=== PATIENT | male | born 1985 | race Caucasian/White ===

== ENCOUNTER 2025-02-14 13:10 | Outpatient (AMB) | payer MEDICARE, MEDICAID, SELFPAY ==
[2025-02-14 13:24] VITALS: BP 124/88; PULSE 78; RESP 18; TEMP 37.1; O2SAT 99; BMI 17.6
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
== END 2025-02-14 13:51 | disposition home or self-care (01) ==
LOC: HODSRG 13:10
PROVIDERS: PCP Physician Assistant; Referring Provider Physician Assistant; Supervising Provider Surgery; Visit Provider Surgery
DX: K50.10 Crohn's disease of large intestine without complications (principal); K64.3 Fourth degree hemorrhoids; Z85.038 Personal history of other malignant neoplasm of large intestine; J44.9 Chronic obstructive pulmonary disease, unspecified
CPT/HCPCS: 99203; G0463

== ENCOUNTER 2025-03-07 13:04 | Outpatient (AMB) | payer MEDICARE, MEDICAID, SELFPAY ==
[2025-03-07 13:10] VITALS: BP 116/73; PULSE 70; RESP 16; TEMP 36.9; O2SAT 98; BMI 18.6
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
== END 2025-03-07 13:39 | disposition home or self-care (01) ==
PROVIDERS: PCP Physician Assistant; Referring Provider Physician Assistant; Supervising Provider Surgery; Visit Provider Surgery
DX: Z01.818 Encounter for other preprocedural examination (principal); K64.3 Fourth degree hemorrhoids; K50.10 Crohn's disease of large intestine without complications; I10 Essential (primary) hypertension; J44.9 Chronic obstructive pulmonary disease, unspecified; Z85.038 Personal history of other malignant neoplasm of large intestine
CPT/HCPCS: 99213; G0463

== ENCOUNTER 2025-03-09 05:40 | Day surgery (SDC) | payer MEDICARE, MEDICAID, SELFPAY ==
[2025-03-07 11:57] VITALS: BMI 18.3
--- NOTE | 2025-03-07 12:25 | EKG_ITS ---
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
[2025-03-07 13:17] LABS: Basophils # (Auto) 0.0 Thou/mm3 (0.0-0.2); Basophils % (Auto) 0 % (0-2.5); Eosinophils # (Auto) 0.1 Thou/mm3 (0.0-0.5); Eosinophils % (Auto) 2 % (0-10); Hematocrit 40.1 % (41.0-53.0); Hemoglobin 12.8 g/dL (13.5-16.0); Immature Granulocytes Auto 0.03 Thou/mm3 (0.00-0.00); Lymphocytes # (Auto) 1.7 Thou/mm3 (1.0-4.8); Lymphocytes % (Auto) 24 % (10-50); Mean Corpuscular HGB Conc 31.9 g/dl (31.0-37.0); Mean Corpuscular Hemoglobin 28.6 pg (25.0-35.0); Mean Corpuscular Volume 90 fL (80-100); Monocytes # (Auto) 0.4 Thou/mm3 (0.0-0.8); Monocytes % (Auto) 6 % (0-12); Neutrophils # (Auto) 4.8 Thou/mm3 (1.8-7.7); Neutrophils % (Auto) 68 % (37-80); Nucleated Red Blood Cell # 0.00 Thou/mm3 (0.00-0.00); Nucleated Red Blood Cell % 0 /100 WBC (0); Platelet Count 232 Thou/mm3 (140-440); RDW Standard Deviation 45.5 fL (35.1-43.9); Red Blood Count 4.47 Miln/mm3 (4.50-5.90); White Blood Count 7.0 Thou/mm3 (3.8-10.6)
[2025-03-07 13:27] LABS: INR 1.0 (0.9-1.3); Partial Thromboplastin Time 25.9 Seconds (22.0-36.0); Prothrombin Time 10.5 Seconds (9.0-12.2)
[2025-03-07 13:31] LABS: Alanine Aminotransferase 20 U/L (10-49); Albumin, Serum 4.4 gm/dL (3.5-5.0); Albumin/Globulin Ratio 2.1 (1.2-2.2); Alkaline Phosphatase 81 U/L (46-116); Anion Gap 7 (7-16); Aspartate Amino Transferase 21 U/L (0-34); BUN/Creatinine Ratio 13 Ratio (12-20); Bilirubin,Total 0.2 mg/dL (0.3-1.2); Blood Urea Nitrogen 9 mg/dL (9-23); Calcium 9.6 mg/dL (8.3-10.6); Calcium (Corrected) 9.6 mg/dL (8.5-10.1); Carbon Dioxide 29.9 mMol/L (20.0-31.0); Chloride 105 mMol/L (98-107); Creatinine (Component) 0.7 mg/dL (0.6-1.3); Estimated Creatinine Clearance 96.3 mL/min (>60); Globulin 2.1 gm/dL (2.3-3.5); Glucose 99 mg/dL (74-106); Osmolality,Calculated 281 (275-295); Potassium 4.2 mMol/L (3.4-5.1); Sodium 142 mMol/L (136-145); Total Protein 6.5 gm/dL (5.7-8.2); eGFR > 60 See Note
[2025-03-09] VITALS (15 sets, daily range): BP systolic 107–141; BP diastolic 52–89; PULSE 56–76; RESP 12–20; TEMP 36.2–36.8; O2SAT 98–100; BMI 18.1
[2025-03-09] MEDS: RINGERS LACTATED 1000 ML 1,000 ML 20 ML IV (06:54)
--- NOTE | 2025-03-09 07:15 | CHAP ---
Visited briefly with patient and gave encouragement and prayer.
--- NOTE | 2025-03-09 09:00 | SUR.PHASEI ---
0900: Pt. arrived with oral airway in place, vitals stable, breathing unlabored, no signs of distress, dressing to rectum has scant amount of blood, report recieved from MD Moore and Alex CARDOSO.
--- NOTE | 2025-03-09 09:05 | ESOP_ITS ---
Date of Procedure 03/09/25 Pre Op Diagnosis Symptomatic hemorrhoids Post Op Diagnosis Same Procedure Attempted colonoscopy, excisional hemorrhoidectomy Findings Colonoscopy aborted due to solid stool in rectum, inflamed and friable hemorrhoids Procedure Description After discussion of risks and benefits, patient was brought to the operating room, SCDs were placed and general anesthesia was induced. He first underwent attempted colonoscopy which will be dictated separately but it was ultimately aborted due to solid stool in the rectum. After colonoscopy patient was transferred to the OR table in lithotomy position with proper padding. He was prepped and draped in the usual sterile fashion. A Zimmerman retractor was placed into the anal canal and the most prominent hemorrhoids were noted at the right anterior and left lateral positions. The right anterior hemorrhoid was first addressed with a 2-0 Vicryl suture at the apex. The hemorrhoid itself was clamped with a hemostat and the anoderm was incised with a #15 blade. The anal sphincter muscles were dissected away from the hemorrhoidal tissue using hemostat and the hemorrhoidal tissue was excised using hand-held harmonic scalpel. The specimen was sent off. For hemostasis the anal mucosa was reapproximated with the previously placed 2-0 Vicryl suture in a running and l ocking fashion. Attention was then turned to the left lateral hemorrhoid which was excised in the same fashion. This resulting defect was bit larger and so it was impossible to fully reapproximate the anal mucosa. Hemostasis of both defects was achieved with electrocautery, direct pressure for 15 minutes and was then reinforced with Surgicel. Left and right pudendal nerve blocks were performed as well as a local block for total of 30 cc of half percent Marcaine. Patient was returned to supine position and extubated without complication. He was brought to PACU in stable condition Pathology / specimen Other (Right anterior, left lateral hemorrhoids) Estimated Blood Loss 50 Surgeon Klaudia Whitehead MD Surgical Staff Operation Date: 03/09/25 07:30 Case Staff Anesthesiologist: Ramakrishna Moore
--- NOTE | 2025-03-09 09:13 | PD.SURDS ---
Planned Discharge Date 03/09/25 DS: Providers Provider Primary care physician: Erica Lucio PA-C Attending Provider on Admission: Klaudia Whitehead MD Attending Provider on DC: Klaudia Whitehead MD Discharging Provider: Klaudia Whitehead MD Diagnosis Discharge Diagnosis (1) Hemorrhoids with prolapsed tissue that cannot be manually replaced: Status: Acute Problem List Completed Was Problem List Reviewed/Reconciled?: Yes Hospital Course Brief History: Colonoscopy was aborted due to solid stool, will repeat in the next few months after healing from hemorrhoidectomy Exam Vital Signs Temp Pulse Resp BP Pulse Ox 98.2 F 61 16 113/65 99 03/09/25 06:39 03/09/25 06:39 03/09/25 06:39 03/09/25 06:39 03/09/25 06:39 Discharge Plan Plan Patient Disposition: HOME (Self Care) Prescriptions/Referrals Prescriptions/Med Rec: New ibuprofen 600 mg tablet 600 mg PO Q6H PRN (Reason: pain, moderate) Qty: 30 0RF Rx Instructions: Take 1 tablet as needed every 6 hours for moderate pain No Action peg 3350-electrolytes [Golytely] 236-22.74-6.74 -5.86 gram recon soln 240 ml PO Q10M Qty: 4000 0RF Rx Instructions: until fecal effluent is clear lisinopril 10 mg tablet 10 mg PO DAILY Patient Comments: TAKE 1 TABLET BY MOUTH DAILY phenytoin sodium extended 100 mg capsule 100 mg PO BID Patient Comments: TAKE 1 CAPSULE BY MOUTH EVERY 12 HOURS levetiracetam [Keppra] 750 mg tablet 750 mg PO BID Humira(CF) Pen 80 mg/0.8 mL pen injector kit 40 mg SUBCUT Q14D diazepam 5 mg tablet 5 mg PO BID Patient Comments: TAKE 1 TABLET BY MOUTH TWICE DAILY morphine 30 mg tablet 30 mg PO TID albuterol sulfate 90 mcg/actuation HFA aerosol inhaler 1 inh INHALATION Q4H PRN (Reason: shortness of breath or wheezing) Patient Comments: INHALE 1 PUFF BY MOUTH EVERY 4 HOURS NEEDED oxycodone 20 mg tablet 20 mg PO Q8H PRN (Reason: pain) Patient Comments: TAKE 1 TABLET BY MOUTH EVERY 8 HOURS NEEDED Referrals: Erica Lucio PA-C [Primary Care Provider] - Kwock,Klaudia, MD [Physician] - (You will receive a phone call to confirm a follow-up appointment with me in 6 weeks) Patient/Caregiver Discharge Instructions Other Discharge Activity Instructions:: You may resume sitz baths as needed for pain, bleeding and swelling starting tomorrow 03/10 If you develop worsening pain, difficulty urinating, fever, or bleeding that does not stop please seek care in ER There are stitches inside your anal canal which will dissolve over time. These will not need to be removed As best as possible please avoid constipation or diarrhea Education Materials: Anesthesia: General Anesthesia, Surgery Anesthesia After, Discharge Instructions for ..., Preventing Surgical Site Infections, Taking a Sitz Bath, ED Hemorrhoids, [facility] General SDC Instructions- Senegalese Print Language: Senegalese Stand Alone Forms: Jihan Award Info., Patient Portal Info Letter Discharge Order Discharge Orders: Discharge (Routine); Ordered 03/09/25 Ordered By: Klaudia Whitehead Results Results: Laboratory Laboratory results: results reviewed PROCEDURES: Procedure Date 03/09/25 Procedures Attempted colonoscopy, excisional hemorrhoidectomy
--- NOTE | 2025-03-09 09:25 | SUR.PHASEI ---
0915: About a minute after oral airway was removed, pt. started to shake uncontrollably, pt. then had a bowel movement and vomited while shaking. Pt. has history of seizures, pt. had what appeared to be a seizure. Pt. was turned to left side during seizure activity (prior to vomiting), pt. was suctioned and nasal canula applied for oxygenation instead of oxymask. During this time, vitals were unable to be obtained due to pt. shaking. Notified MD Whitehead and MD Moore, was advised to continue to monitor and make them aware if anything further concerning occurs. Seizure lasted approximately 2 minutes. Post seizure, pt. verbalized he is aware he had a seizure and that his last seizure was a few weeks ago. Pt. wakes to name then drifts back to sleep if not prompted with further instructions/questions.
[2025-03-09] MEDS: HYDROmorphone INJ 2 MG/ML VIAL 0.4 MG IVP ×5 (09:37→10:30)
[2025-03-09] MEDS: TAMSULOSIN HCL 0.4 MG CAPSULE PO (09:49)
[2025-03-09] MEDS: MORPHINE SULF INJ 10 MG/ML VIAL 3 MG IVP ×3 (10:40→12:39)
--- NOTE | 2025-03-09 12:06 | SUR.PHASEII ---
Received report on pt. s/p surgery from Yeimy CARDOSO. Pt. is resting, occasional grimaces, VSS. Pt. has high tolerance to pain medication d/t pt. taking high dose of morphine at home. Pt. was provided a multiple different pain relieving modalities with only brief moments of relief. Performed bladder scan per Dr. Whitehead d/t pt. unable to urinated and it is required per Dr. Whitehead before pt. is able to be discharged. Will report results of bladder scan to Dr. Whitehead.
--- NOTE | 2025-03-09 12:15 | SUR.PHASEII ---
Made Dr. Whitehead aware of bladder scan results of 79ml. Dr. Whitehead encouraged for pt. to intake more oral fluids to help with needing to urinate.
--- NOTE | 2025-03-09 12:40 | SUR.PHASEII ---
1240: Recieved report from Siomara CARDOSO, still waiting for pt. to urinate. Pt. AAOx4,vitals stable, breathing unlabored, dressing to rectum CDI.
--- NOTE | 2025-03-09 13:10 | SUR.PHASEII ---
1310: Pt. AAOx4, vitals stable, breathing unlabored, no complaint of pain or nausea, dressing to rectum has scant amount of blood, pt. tolerated sips of soda well, pt. able to void, gave discharge instructions to the pt. and his ride, both verbalized understanding and had no further questions. Pt. left with all personal belongings.
== END 2025-03-09 13:10 | disposition home or self-care (01) ==
PROVIDERS: Anesthesiology; PCP Physician Assistant; Referring Provider Surgery; Visit Provider Surgery
PROC: (CPT 46260; principal; 2025-03-09 07:30)
PROC: 0DJD8ZZ Inspection of Lower Intestinal Tract, Via Natural or Artificial Opening Endoscopic (ICD-10-PCS; CPT 45378; 2025-03-09 07:30)
DX: K64.3 Fourth degree hemorrhoids (principal); K50.90 Crohn's disease, unspecified, without complications; K64.9 Unspecified hemorrhoids; Z01.810 Encounter for preprocedural cardiovascular examination
CPT/HCPCS: 46260; 45330; 36415; 80048; 80053; 85025; 85610; 85730; 93005; A4217; A4649; J0131; J1171; J2250; J2270; J2704; J3010; J3490; J7120; A9270

== ENCOUNTER 2025-03-11 13:00 | Outpatient (AMB) | payer MEDICARE, MEDICAID, SELFPAY ==
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
[2025-03-11 13:10] VITALS: BP 93/56; PULSE 92; RESP 16; TEMP 36.9; O2SAT 98; BMI 17.4
== END 2025-03-11 15:11 | disposition home or self-care (01) ==
LOC: HODSRG 13:00
PROVIDERS: PCP Physician Assistant; Referring Provider Physician Assistant; Supervising Provider Surgery; Visit Provider Surgery
DX: Z48.815 Encounter for surgical aftercare following surgery on the digestive system (principal); I10 Essential (primary) hypertension; J44.9 Chronic obstructive pulmonary disease, unspecified
CPT/HCPCS: 99213; G0463